=== PATIENT | male | born 1950 | race African-American/Black ===

== ENCOUNTER 2021-09-28 23:23 | Emergency (ER) | payer OTHER, BC, SELFPAY ==
[~2021-09-28] VITALS: Ht 175.3 cm; Wt 94.3 kg
[~2021-09-28 23:23] MED LIST: ENAL20TA18 PO; LANS30CA53 PO; NIAC50TA PO
[2021-09-28 23:28] VITALS: BP_SYST 144
[2021-09-29 00:08] LABS: ANION GAP 11 (5-15); CALCIUM 8.7 mg/dL (8.4-11.0); CHLORIDE 103 mmol/L (98-107); CREATININE 1.94 mg/dL (0.55-1.30); GLUCOSE 103 mg/dL (70-99); POTASSIUM 3.6 mmol/L (3.5-5.1); SODIUM SERUM 140 mmol/L (136-145); UREA NITROGEN, BLOOD 17 mg/dL (8-21)
[2021-09-29 00:11] LABS: EOSINOPHILS % (AUTO) 0.6 % (0.0-4.0); HEMATOCRIT 43.2 % (36-54); HEMOGLOBIN 14.1 g/dL (14.0-18.0); LYMPHOCYTES % (AUTO) 26.4 % (20.5-51.5); MEAN CORPUSCULAR HEMOGLOBIN 28 pg (27-31); MEAN CORPUSCULAR HGB CONC 33 % (32-36); MEAN CORPUSCULAR VOLUME 86 fL (79.0-98.0); MONOCYTES % (AUTO) 21.6 % (1.7-9.3); NEUTROPHILS % (AUTO) 50.3 % (40.0-70.0); PLATELET COUNT (AUTO) 334 K/uL (130-430); PROTHROMBIN TIME 10.2 SECS (9.5-12.5); RED BLOOD CELL COUNT(AUTO) 5.02 MIL/uL (4.2-6.2)
[2021-09-29 00:12] LABS: BASOPHILS # (AUTO) 0.1 K/uL (0.0-0.2); BASOPHILS % (AUTO) 1.1 % (0.0-2.0); LYMPHOCYTES # (AUTO) 1.8 K/uL (1.0-5.5); MONOCYTES # (AUTO) 1.5 K/uL (0.0-1.0); NEUTROPHILS # (AUTO) 3.5 K/uL (1.8-7.7)
[2021-09-29 00:15] LABS: ALANINE AMINOTRANSFERASE 18 U/L (12-78); ALBUMIN 2.4 g/dL (3.4-4.8); ASPARTATE AMINOTRANSFERASE 51 U/L (10-37); TOTAL BILIRUBIN 0.4 mg/dL (0.0-1.0)
[2021-09-29] MEDS ORDERED: levETIRAcetam 1,000 MG in NS 90 ML IV ONE (00:15)
[2021-09-29] MEDS ORDERED: IOHEXOL 350 mgI/mL, 150 ML INFUS..BTL IV ONE (00:26)
[2021-09-29] MEDS ORDERED: ASPIRIN 300 MG/SUPP.RECT SUPP RC ONE ×2 (00:45→02:05)
[2021-09-29 06:58] VITALS: BP_SYST 100
== END 2021-09-29 06:58 ==
LOC: SED 23:23
DX: I63.9 Cerebral infarction, unspecified (principal); I10 Essential (primary) hypertension; K21.9 Gastro-esophageal reflux disease without esophagitis; Z20.822 Contact with and (suspected) exposure to COVID-19; Z79.82 Long term (current) use of aspirin; Z79.899 Other long term (current) drug therapy; Z88.8 Allergy status to other drugs, medicaments and biological substances
CPT/HCPCS: 36415; 70450; 71045; 76376; 80053; 84484; 85025; 85610; 85730; 86886; 86900; 86901; 87426; 93005; 96365; 99291; J1953; Q9967